=== PATIENT | male | born 1960 | race Caucasian/White ===

== ENCOUNTER 2023-02-14 08:34 | Emergency (ER) | payer MEDICARE, OTHER ==
[2023-02-14 09:43] LABS: #Basophils 0.2 thou/uL (0.0-0.2); #Eosinphils 0.3 thou/uL (0.0-0.7); #Lymphocytes 1.5 thou/uL (1.20-3.40); #Monocytes 0.9 thou/uL (0.11-0.59); #Neutrophils 9.9 thou/uL (1.40-6.50); %Basophils 1.7 % (0.0-1.0); %Eosinophils 2.2 % (0.0-10.0); %Lymphocytes 11.7 % (21.0-51.0); %Monocytes 6.8 % (0.0-10.0); %Neutrophils 77.6 % (42.0-75.0); Hemoglobin 10.4 g/dL (14.0-18.0); Mean Corpuscular HGB CONC 33.4 g/dL (32.0-36.0); Mean Corpuscular Hemoglobin 30.1 pg (27.0-31.0); Mean Corpuscular Volume 90.2 fl (78.0-98.0); Mean Platelet Volume 6.4 fL (7.4-10.4); Platelet Count 378 10x3/uL (130-400); RBC Distribution Width 12.2 % (11.5-14.5); Red Blood Cell (RBC) Count 3.47 mill/uL (4.70-6.10); White Blood Cell (WBC) Count 12.8 10x3/uL (4.8-10.8)
[2023-02-14] MEDS ORDERED: Vancomycin 1 GM VIAL ONE (09:43)
[2023-02-14] MEDS ORDERED: Piperacillin/Tazobactam 4.5 GM VIAL ONE (09:43)
[2023-02-14] MEDS ORDERED: Sodium Chloride 0.9% 100 ML ONE (09:45)
[2023-02-14 09:56] LABS: ALT (SGPT) 16 U/L (8-55); AST (SGOT) 13 U/L (5-34); Alkaline Phosphatase 63 U/L (40-110); Anion Gap 11 mmol/L (10-20); BUN (Urea Nitrogen) 13 mg/dL (8.4-25.7); Bilirubin, Total 0.4 mg/dL (0.2-1.2); Calc. Creatinine Clearance 0 mL/min (70-130); Calcium 9.8 mg/dL (7.8-10.44); Carbon Dioxide 25 mmol/L (23-31); Chloride 101 mmol/L (98-107); Estimated GFR 97; Glucose 109 mg/dL (80-115); Potassium 4.4 mmol/L (3.5-5.1)
[2023-02-14] MEDS ORDERED: Morphine 4 MG/ML VIAL ONE ×2 (09:56→11:35)
[2023-02-14] MEDS ORDERED: Ondansetron PF 4 MG/2 ML Vial ONE (09:56)
[2023-02-14 09:59] LABS: Sodium 133 mmol/L (136-145)
[2023-02-14 10:13] LABS: INR-International Normal Ratio 1.1; Prothrombin Time 14.4 sec (12.0-14.7)
[2023-02-14 10:14] LABS: PTT 33.6 sec (22.9-36.1)
[2023-02-14] MEDS ORDERED: Heparin 10,000 UNITS/ 10 ML VIAL ONE (10:29)
[2023-02-14] MEDS ORDERED: Heparin 25,000 units/D5W 500 ML ONE (10:29)
[2023-02-14] MEDS ORDERED: HYDROmorphone 0.5 MG/0.5 ML SYRINGE ONE ×2 (14:20→15:05)
== END 2023-02-14 15:50 | disposition short-term general hospital (02) ==
LOC: BURERS 08:34
DX: E11.51 Type 2 diabetes mellitus with diabetic peripheral angiopathy without gangrene (principal); M62.262 Nontraumatic ischemic infarction of muscle, left lower leg; I10 Essential (primary) hypertension; E78.5 Hyperlipidemia, unspecified; L03.116 Cellulitis of left lower limb
CPT/HCPCS: 36415; 80053; 82550; 83605; 85025; 85610; 85730; 86140; 87040; 93005; 94760; 96365; 96374; 96375; 96376; J1170; J1644; J2270; J2405; J2543; J3370; J3490